=== PATIENT | female | born 1990 | race Caucasian/White ===

== ENCOUNTER 2021-07-02 19:53 | Emergency (ER) | payer OTHER ==
[~2021-07-02] VITALS: Ht 154.9 cm; Wt 90.7 kg
[2021-07-02] MEDS ORDERED: PEPCID AC20 MG PO (23:31)
[2021-07-02] MEDS ORDERED: LEVSIN/SL0.125 MG SL (23:31)
[2021-07-02] MEDS ORDERED: IRON325 MG PO (23:41)
== END 2021-07-02 23:48 | disposition home or self-care (01) ==
LOC: ER 19:53
DX: K29.70 Gastritis, unspecified, without bleeding (principal)